=== PATIENT | male | born 1950 | race Caucasian/White ===

== ENCOUNTER → 2017-09-16 10:58 | Outpatient (CLI) | payer MEDICARE, SELFPAY ==
[2017-09-16 14:16] LABS: Basophils % 0.5 % (0.1-2.0); Eosinophils # 0.2 K/mm3 (0.0-0.4); Eosinophils % 2.4 % (0.1-12.0); Hematocrit 39.1 % (42.0-52.0); Hemoglobin 12.8 g/dL (14.1-18.0); Lymphocytes # 1.5 K/mm3 (0.7-4.5); Lymphocytes % 16.3 K/mm3 (10-50); Mean Corpuscular HGB Conc 32.7 g/dL (31.8-35.4); Mean Corpuscular Hemoglobin 30.7 pg (27.0-31.2); Mean Corpuscular Volume 93.6 fl (80-94); Mean Platelet Volume 7.4 fl (7.4-10.4); Monocytes # 0.8 K/mm3 (0.1-1.0); Monocytes % 8.3 % (1.7-9.3); Neutrophils # 6.7 K/mm3 (1.8-7.8); Neutrophils % 72.4 % (37.0-80.0); Platelet Count 297 K/mm3 (142-424); Red Blood Count 4.18 M/mm3 (4.60-6.20); Red Cell Distribution Width 13.7 % (11.5-17.5); White Blood Count 9.2 K/mm3 (4.8-10.8)
[2017-09-16 14:44] LABS: Hemoglobin A1C 6.1 % (0.0-7.0)
[2017-09-16 16:53] LABS: Alanine Aminotransferase 27 U/L (12-78); Albumin Level 3.6 gm/dL (3.4-5.0); Albumin/Globulin Ratio 1.2 (1.1-1.8); Alkaline Phosphatase 97 U/L (46-116); Anion Gap 14.3 mEq/L (5-15); Aspartate Amino Transferase 11 U/L (15-37); Blood Urea Nitrogen 17 mg/dL (7-18); Calcium 8.9 mg/dL (8.5-10.1); Carbon Dioxide 25 mmol/L (21.0-32.0); Chloride 106 mmol/L (98-107); Chol/HDL Ratio 3.1 (1-3.5); Cholesterol 133 mg/dL (140-200); Creatinine,Serum 1.01 mg/dL (0.70-1.30); Estimated Glomerular Filt Rate 73 ml/min (>60); GFR (African American) 89 ML/MIN (>60); Globulin 2.9 gm/dl (1.3-3.2); Glucose 91 mg/dL (74-106); HDL Cholesterol 43 mg/dL (27-67); LDL Cholesterol 73 mg/dL (0-130); Potassium 4.3 mmoL/L (3.5-5.1); Sodium 141 mmol/L (136-145); T4 (Thyroxine) 8.7 ug/dl (4.7-13.3); Thyroid Stimulating Hormone 4.58 uIU/ml (0.358-3.740); Total Protein,Serum 6.5 gm/dL (6.4-8.2); Triglycerides 86 mg/dL (30-200); Triiodothryronine (T3) Uptake 34 % (31-39); VLDL Cholesterol 17 mg/dL (0-40)
== END ==
PROVIDERS: Visit Provider Internal Medicine Adolescent Medicine
DX: E03.2 Hypothyroidism due to medicaments and other exogenous substances (principal); E11.9 Type 2 diabetes mellitus without complications; E78.5 Hyperlipidemia, unspecified; I25.5 Ischemic cardiomyopathy
CPT/HCPCS: 36415; 80053; 80061; 83036; 84436; 84443; 84479; 85025

== ENCOUNTER → 2018-01-31 09:23 | Outpatient (CLI) | payer MEDICARE, SELFPAY ==
--- NOTE | 2018-01-31 09:31 | XR_ITS ---
XR chest 2V HISTORY: ITS.REASON: smoker,soa ORDERING PHYSICIAN: Timothy Casey PATIENT AGE: 67 years Technique: PA and lateral chest COMPARISON: 11/17/2013 two-view CXR. FINDINGS: The lungs are well expanded and clear with nothing definitely acute. Upper normal markings at the medial left base likely reflecting mild chronic changes.No pneumothorax. No pleural effusion. No focal pneumonia. Right lung clear and unremarkable. . heart is normal in size with normal pulmonary vascularity. Lyndsey & mediastinal structures appear satisfactory.. Pacemaker overlying the left chest with atrial and ventricular leads intact. A pacemaker has been revised since 2013 with different orientation of the pacemaker and a additional lead since 2013.. Old right sixth rib fracture again noted. Degenerative changes T-spine again noted. Mild wedging mid T-spine vertebral unchanged since 2013. IMPRESSION Nothing definitely acute. Lungs clear. Perhaps subtle additional atelectasis towards the left lung base. Pacemaker is been revised since 2013. Heart normal size.
[2018-01-31 12:47] LABS: Alanine Aminotransferase 32 U/L (12-78); Albumin Level 3.6 gm/dL (3.4-5.0); Albumin/Globulin Ratio 1.3 (1.1-1.8); Alkaline Phosphatase 103 U/L (46-116); Anion Gap 15.3 mEq/L (5-15); Aspartate Amino Transferase 12 U/L (15-37); Bilirubin,Total 0.6 mg/dL (0.2-1.0); Blood Urea Nitrogen 15 mg/dL (7-18); Calcium 8.5 mg/dL (8.5-10.1); Carbon Dioxide 22 mmol/L (21.0-32.0); Chloride 105 mmol/L (98-107); Creatinine,Serum 0.97 mg/dL (0.70-1.30); Estimated Glomerular Filt Rate 77 ml/min (>60); GFR (African American) 93 ML/MIN (>60); Globulin 2.8 gm/dl (1.3-3.2); Glucose 92 mg/dL (74-106); Potassium 4.3 mmoL/L (3.5-5.1); Sodium 138 mmol/L (136-145); Thyroid Stimulating Hormone 4.36 uIU/ml (0.358-3.740); Total Protein,Serum 6.4 gm/dL (6.4-8.2)
== END ==
PROVIDERS: PCP Internal Medicine Adolescent Medicine; Visit Provider Internal Medicine Clinical Cardiac Electrophysiology
DX: Z79.899 Other long term (current) drug therapy (principal); I48.91 Unspecified atrial fibrillation
CPT/HCPCS: 36415; 71046; 80053; 84443

== ENCOUNTER → 2018-04-23 10:23 | Outpatient (CLI) | payer MEDICARE, SELFPAY ==
--- NOTE | 2018-04-23 10:25 | FL_ITS ---
FL barium swallow INDICATION: dysphagia dysphagia patient reports symptoms at neck/upper chest . TECHNIQUE & FINDINGS: Study FL barium swallow Ordering Physician: Jacinto Hammond MD Patient Age: 67 years: Male HISTORY: ITS.REASON: dysphagia TECHNIQUE: Esophagram/ performed by Dr. Rodgers. Fluoroscopic observation 2 minutes 9 seconds COMPARISON :No relevant prior studies. Previous cyst 2 view chest November 2013 FINDINGS . A pacemaker with multiple leads overlies the chest The cervical esophagus appears satisfactory . Good strength of swallowing. Vallecula & piriform sinuses satisfactory/ reasonably symmetric.. Minimal cricopharyngeus muscle noted but relaxes appropriately, and does not appear to impair the swallowing process. Cervical esophagus remains midline Mid and upper Thoracic esophagus appears satisfactory. However there is relatively narrowed segment at GE junction-raising concern regarding possible stricture or underlying lesion.. There is some minimal distention through this segment, and it does not appear totally fixed but does appears more narrowed than typical thus warrants endoscopy.... Slight delay in the passage of liquid barium through this region also noted. However I do not see the prominent dilatation of the esophagus above this to suggest achalasia.. Recommend endoscopy to further evaluate. IMPRESSION: Narrowing at GE junction,... Suspect for developing stricture, or possible underlying lesion. Recommend endoscopy to further evaluate Otherwise the mid and upper thoracic esophagus, and cervical esophagus appear satisfactory
== END ==
PROVIDERS: PCP Internal Medicine Adolescent Medicine; Visit Provider Surgery
DX: R13.10 Dysphagia, unspecified (principal)
CPT/HCPCS: 74220

== ENCOUNTER 2018-07-24 18:29 | Emergency (ER) | payer MEDICARE, SELFPAY ==
[2018-07-24 18:38] VITALS: BP 106/59; PULSE 81; RESP 17; TEMP 36.8; O2SAT 96; BMI 32.5
[2018-07-24 18:40] VITALS: BP 106/59; PULSE 81; RESP 17; TEMP 36.8; O2SAT 96; BMI 32.5
--- NOTE | 2018-07-24 18:50 | HMH.EDUTC ---
[facility] [place] Impression: Cellulitis of right elbow Disposition: Home, Self-Care Condition on Discharge: Good Instructions: DI for Cellulitis -- Adult Prescriptions: Sulfamethoxazole/Trimethoprim [Bactrim DS tablet] 1 each PO BID 10 Days #20 tab Referrals: Efraín Garcia MD [Primary Care Provider] - Time of Disposition: 19:13 Medical Decision Making - Fito Inquiry Pt receiving controlled substance: No Vital Signs: 07/24/18 18:38 07/24/18 18:40 Temperature 98.3 F 98.3 F Temperature Source Oral Oral Pulse Rate [Left Radial] 81 81 Respiratory Rate 17 17 Blood Pressure [Right Arm] 106/59 L 106/59 L Blood Pressure Mean [Right Arm] 74 74 Blood Pressure Source [Right Arm] Automatic Cuff Automatic Cuff Blood Pressure Position [Right Arm] Sitting Sitting 02 Sat by Pulse Oximetry 96 96 Oxygen Delivery Method Room Air Room Air Orders (Tests/Meds): ED MEDICATIONS Discontinued Medications Generic Name Dose Route Start Last Admin Trade Name Freq PRN Reason Stop Dose Admin Ceftriaxone Sodium 1 gm 07/24/18 18:59 07/24/18 19:01 Rocephin 1gm Vial IM 07/24/18 19:00 1 gm ONCE ONE Administration Protocol Lidocaine HCl 0 ml 07/24/18 18:59 07/24/18 19:01 Lidocaine 1% 10ml Mdv IM 07/24/18 19:00 2.1 ml ONCE ONE Administration ORDERS Category Date Time Status Elbow XR right minimum 3 views [XR elbow RT min 3V] Exams 07/24/18 18:51 Taken Stat - Radiology Data #1 Image(s): Elbow Image Reviewed: Yes I reviewed the patient's radiology image w/the ED provider Preliminary Findings: No Fracture Seen [facility] [place] - General Stated complaint: Cancer, elbow is infected Time Seen by Provider: 07/24/18 18:50 Mode of Arrival: Ambulatory Source of Information: Patient Limitations: No Limitations Description of Symptoms (Recalled from Triage Doc. by RN): c/o right elbow sore that is getting red and think it is infected HEENT Symptoms (Recalled from RN notes): No Resp Symptoms (Recalled from RN notes): No Skin Symptoms (Recalled from RN notes): Yes MS Symptoms (Recalled from RN notes): Yes Functional Status (Recalled from RN notes): WNL - History of Present Illness Provider Complaint: Patient fell 4 days ago and struck his right elbow. His elbow is red and swollen and sore. He has esophageal cancer. Had chemo 2 days ago and radiation today. Onset (ago): day(s) (4) Location: right, upper extremity Relieving factors: immobilization Associated symptoms: denies other symptoms Treatments prior to arrival: none - Related Data Home Medications Medication Instructions Recorded Confirmed amiodarone 200 mg tablet 200 mg PO DAILY 04/20/18 05/07/18 aspirin 81 mg tablet,delayed 81 mg PO DAILY 04/20/18 05/07/18 release atorvastatin 80 mg tablet 80 mg PO DAILY 04/20/18 05/07/18 carvedilol 3.125 mg tablet 3.125 mg PO BID 04/20/18 05/07/18 cholecalciferol (vitamin D3) 1,000 1,000 unit PO DAILY 04/20/18 05/07/18 unit capsule clopidogrel 75 mg tablet 75 mg PO DAILY 04/20/18 05/07/18 coenzyme Q10 10 mg capsule 10 mg PO TID 04/20/18 05/07/18 doxazosin 4 mg tablet 4 mg PO DAILY 04/20/18 05/07/18 furosemide 20 mg tablet 20 mg PO DAILY 04/20/18 05/07/18 losartan 25 mg tablet 25 mg PO DAILY 04/20/18 05/07/18 spironolactone 25 mg tablet 25 mg PO DAILY 04/20/18 05/07/18 Previous Rx's Medication Instructions Recorded fluconazole 100 mg tablet 100 mg PO DAILY #30 tab 07/08/18 sucralfate 1 gram tablet 1 g PO QACHS #120 tab 07/08/18 Sulfamethoxazole/Trimethoprim 1 each PO BID 10 Days #20 tab 07/24/18 [Bactrim DS tablet] Allergies Allergy/AdvReac Type Severity Reaction Status Date / Time No Known Allergies Allergy Verified 05/07/18 06:50 - Worker's Comp Is this a Worker's Comp case?: No [facility] History - Hepatitis A Screen Drug use history?: No High risk sexual behaviors?: No History of sexually transmitted infection?: No Currently employed?: No [employer]
--- NOTE | 2018-07-24 18:51 | XR_ITS ---
XR elbow RT min 3V HISTORY: Pain following injury ITS.REASON: FALL ORDERING PHYSICIAN: AYESHA Tristan PATIENT AGE: 68 years COMPARISON: None FINDINGS: No obvious fracture or dislocation. Prominent enthesophyte is present at the olecranon. There is soft tissue swelling along the proximal aspect of the forearm dorsally. IMPRESSION: No acute fracture Soft tissue swelling
--- NOTE | 2018-07-24 18:54 | ED_ITS ---
[facility] [place] Clinical Impression: Cellulitis of right elbow Disposition: Home, Self-Care Condition on Discharge: Good Instructions: DI for Cellulitis -- Adult Prescriptions: Sulfamethoxazole/Trimethoprim [Bactrim DS tablet] 1 each PO BID 10 Days #20 tab Referrals: Efraín Garcia MD [Primary Care Provider] - Time of Disposition: 19:13 Medical Decision Making - Fito Inquiry Pt receiving controlled substance: No Vital Signs: 07/24/18 18:38 07/24/18 18:40 Temperature 98.3 F 98.3 F Temperature Source Oral Oral Pulse Rate [Left Radial] 81 81 Respiratory Rate 17 17 Blood Pressure [Right Arm] 106/59 L 106/59 L Blood Pressure Mean [Right Arm] 74 74 Blood Pressure Source [Right Arm] Automatic Cuff Automatic Cuff Blood Pressure Position [Right Arm] Sitting Sitting 02 Sat by Pulse Oximetry 96 96 Oxygen Delivery Method Room Air Room Air Orders (Tests/Meds): ED MEDICATIONS Discontinued Medications Generic Name Dose Route Start Last Admin Trade Name Freq PRN Reason Stop Dose Admin Ceftriaxone Sodium 1 gm 07/24/18 18:59 07/24/18 19:01 Rocephin 1gm Vial IM 07/24/18 19:00 1 gm ONCE ONE Administration Protocol Lidocaine HCl 0 ml 07/24/18 18:59 07/24/18 19:01 Lidocaine 1% 10ml Mdv IM 07/24/18 19:00 2.1 ml ONCE ONE Administration ORDERS Category Date Time Status Elbow XR right minimum 3 views [XR elbow RT min 3V] Exams 07/24/18 18:51 Taken Stat - Radiology Data #1 Image(s): Elbow Image Reviewed: Yes I reviewed the patient's radiology image w/the ED provider Preliminary Findings: No Fracture Seen [facility] [place] - General Stated complaint: Cancer, elbow is infected Time Seen by Provider: 07/24/18 18:50 Mode of Arrival: Ambulatory Source of Information: Patient Limitations: No Limitations Description of Symptoms (Recalled from Triage Doc. by RN): c/o right elbow sore that is getting red and think it is infected HEENT Symptoms (Recalled from RN notes): No Resp Symptoms (Recalled from RN notes): No Skin Symptoms (Recalled from RN notes): Yes MS Symptoms (Recalled from RN notes): Yes Functional Status (Recalled from RN notes): WNL - History of Present Illness Provider Complaint: Patient fell 4 days ago and struck his right elbow. His elbow is red and swollen and sore. He has esophageal cancer. Had chemo 2 days ago and radiation today. Onset (ago): day(s) (4) Location: right, upper extremity Relieving factors: immobilization Associated symptoms: denies other symptoms Treatments prior to arrival: none - Related Data Home Medications Medication Instructions Recorded Confirmed amiodarone 200 mg tablet 200 mg PO DAILY 04/20/18 05/07/18 aspirin 81 mg tablet,delayed 81 mg PO DAILY 04/20/18 05/07/18 release atorvastatin 80 mg tablet 80 mg PO DAILY 04/20/18 05/07/18 carvedilol 3.125 mg tablet 3.125 mg PO BID 04/20/18 05/07/18 cholecalciferol (vitamin D3) 1,000 1,000 unit PO DAILY 04/20/18 05/07/18 unit capsule clopidogrel 75 mg tablet 75 mg PO DAILY 04/20/18 05/07/18 coenzyme Q10 10 mg capsule 10 mg PO TID 04/20/18 05/07/18 doxazosin
[2018-07-24 19:23] VITALS: BP 106/59; PULSE 81; RESP 17; TEMP 36.8; O2SAT 96
== END 2018-07-24 19:24 | disposition home or self-care (01) ==
PROVIDERS: Emergency Provider Physician Assistant; PCP Internal Medicine Adolescent Medicine
DX: L03.113 Cellulitis of right upper limb (principal); I10 Essential (primary) hypertension; E78.5 Hyperlipidemia, unspecified; F17.210 Nicotine dependence, cigarettes, uncomplicated; Z95.0 Presence of cardiac pacemaker; C15.9 Malignant neoplasm of esophagus, unspecified
CPT/HCPCS: G0463; 73080; 96372; 99202

== ENCOUNTER → 2019-03-31 07:55 | Outpatient (CLI) | payer MEDICARE, SELFPAY ==
[2019-03-31 15:19] LABS: Anion Gap 15.4 mEq/L (5-15); Blood Urea Nitrogen 17 mg/dL (7-18); Calcium 8.9 mg/dL (8.5-10.1); Carbon Dioxide 26 mmol/L (21.0-32.0); Chloride 108 mmol/L (98-107); Creatinine,Serum 1.15 mg/dL (0.70-1.30); Estimated Glomerular Filt Rate 63 ml/min (>60); GFR (African American) 76 ML/MIN (>60); Glucose 90 mg/dL (74-106); Potassium 5.4 mmoL/L (3.5-5.1); Sodium 144 mmol/L (137-145)
== END ==
PROVIDERS: Visit Provider Internal Medicine Adolescent Medicine
DX: I25.5 Ischemic cardiomyopathy (principal); Z12.5 Encounter for screening for malignant neoplasm of prostate
CPT/HCPCS: 36415; 80048; 83735; G0103

== ENCOUNTER → 2019-04-27 09:09 | Outpatient (CLI) | payer MEDICARE, SELFPAY ==
[2019-04-27 13:56] LABS: Anion Gap 13.5 mEq/L (5-15); Blood Urea Nitrogen 13 mg/dl (9-20); Calcium 9.2 mg/dl (8.4-10.2); Carbon Dioxide 23 mmol/L (22.0-30.0); Chloride 107 mmol/L (98-107); Estimated Glomerular Filt Rate 83 ml/min (>60); GFR (African American) 101 ML/MIN (>60); Glucose 96 mg/dl (74-100); Potassium 4.5 mmoL/L (3.5-5.1); Sodium 139 mmol/L (136-145)
== END ==
PROVIDERS: PCP Internal Medicine Adolescent Medicine; Visit Provider Internal Medicine Cardiovascular Disease
DX: I50.9 Heart failure, unspecified (principal)
CPT/HCPCS: 36415; 80048

== ENCOUNTER → 2019-08-31 10:09 | Outpatient (CLI) | payer MEDICARE, SELFPAY ==
--- NOTE | 2019-08-31 10:25 | XR_ITS ---
PROCEDURE: XR LUMBAR SPINE MIN 4V CLINICAL INDICATION: ACUTE RIGHT SIDED LOW BACK PAIN W/ RIGHT SIDE SCIATICA COMPARISON: No exams were available for comparison FINDINGS: There is DISH of the lower thoracic and upper lumbar spine with mild multilevel degenerative disc disease. No acute fracture or dislocation. Facet arthritic changes are present at L5 and S1. There is mild sclerosis of the SI joints inferiorly on both sides. There is a 3 mm calcific density overlying the mid abdominal region on the left and may be due to a renal stone. May also be a small renal stone along the upper pole of the right kidney. IMPRESSION: 1. Degenerative changes 2. Possible bilateral nephrolithiasis Dictated by: Anthony Nolen MD 08/31/2019 15:29 Electronically signed by Anthony Nolen MD in [place] 08/31/2019 15:29
[2019-08-31 11:05] LABS: Basophils % 0.4 % (0.1-2.0); Eosinophils # 0.1 K/mm3 (0.0-0.4); Eosinophils % 1.9 % (0.1-12.0); Hematocrit 34.2 % (42.0-52.0); Hemoglobin 11.7 g/dL (14.1-18.0); Lymphocytes # 0.8 K/mm3 (0.7-4.5); Lymphocytes % 12.1 % (10-50); Mean Corpuscular HGB Conc 34.2 g/dL (31.8-35.4); Mean Corpuscular Hemoglobin 34.3 pg (27.0-31.2); Mean Platelet Volume 7.5 fl (7.4-10.4); Monocytes # 0.6 K/mm3 (0.1-1.0); Monocytes % 9.4 % (1.7-9.3); Neutrophils # 5.1 K/mm3 (1.8-7.8); Neutrophils % 76.2 % (37.0-80.0); Platelet Count 241 K/mm3 (142-424); Red Blood Count 3.42 M/mm3 (4.60-6.20); Red Cell Distribution Width 16.7 % (11.5-17.5); White Blood Count 6.8 K/mm3 (4.8-10.8)
[2019-08-31 12:19] LABS: Chloride 106 mmol/L (98-107); Potassium 4.5 mmoL/L (3.5-5.1); Sodium 138 mmol/L (136-145)
[2019-08-31 12:21] LABS: Blood Urea Nitrogen 32 mg/dl (9-20); Estimated Glomerular Filt Rate 60 ml/min (>60); GFR (African American) 72 ML/MIN (>60)
[2019-08-31 12:22] LABS: Alanine Aminotransferase 22 U/L (12-78); Albumin Level 3.7 g/dl (3.5-5.0); Albumin/Globulin Ratio 1.6 (1.1-1.8); Alkaline Phosphatase 96 U/L (38-126); Anion Gap 13.5 mEq/L (5-15); Aspartate Amino Transferase 23 U/L (17-59); Bilirubin,Total 1.2 mg/dl (0.2-1.3); Calcium 8.8 mg/dl (8.4-10.2); Carbon Dioxide 23 mmol/L (22.0-30.0); Chol/HDL Ratio 2.5 (1-3.5); Cholesterol 128 mg/dl (140-200); Globulin 2.3 g/dL (1.3-3.2); Glucose 91 mg/dl (74-100); HDL Cholesterol 51 mg/dl (40-60); Triglycerides 80 mg/dl (30-150); VLDL Cholesterol 16 mg/dL (0-40)
[2019-08-31 12:34] LABS: Direct LDL Cholesterol 67.08 mg/dL (100-129)
[2019-08-31 13:06] LABS: Hemoglobin A1C 5.4 % (4.0-6.0)
== END ==
PROVIDERS: Visit Provider Internal Medicine Adolescent Medicine
DX: E78.5 Hyperlipidemia, unspecified (principal); E11.9 Type 2 diabetes mellitus without complications; M54.41 Lumbago with sciatica, right side
CPT/HCPCS: 36415; 72110; 80053; 80061; 83036; 85025

== ENCOUNTER 2019-10-07 08:00 | Outpatient (RCR) | payer MEDICARE, SELFPAY ==
--- NOTE | 2019-09-22 12:02 | HMH.PTOPEV ---
PT Outpatient Evaluation Rehab PT Outpatient Evaluation Start: 09/22/19 11:28 Freq: Status: Active Protocol: Document 09/22/19 11:28 PDESEROUX (Rec: 09/22/19 12:02 PDESEROUX [id number]) Electronically Signed By Jaxson Green, PT 09/22/19 11:28 Outpatient Therapy Subjective History Subjective History Pt. is a 69 year old male who presents to outpatient PT clinic w/ complaints(initial encounter) of constant and subacute RLE( buttock,posterolateral thigh to knee) of insidious onset 2 months ago that has gotten worse. Pt. denies symptoms in LLE, and denies bowel/bladder dysfunction. Recent diagnostic imaging negative per pt. report. Pt. denies having injections for current pathology. Pt. unable to recall prescription medications at this time, stated left my wallet at home . PMH includes Hypotension, prostate/esophageal cancer, PACEMAKER, RLE TKA, and Cardiac stent placement. Chief Complaint Pain Symptom Type Sharp,Stabbing Symptoms Relieved By Nothing Symptoms Aggravated By Sitting,Standing,Walking Prior Functional Limitations None Current Functional Limitations Standing,Sitting,Walking, Bending/Stooping Symptom Description Constant but Variable Level of pain today (0-10) 5 Pain scale - at its best (0-10) 2 Pain scale - at its worst (0-10) 10 Lumbopelvic Eval Posture Thoracic Spine Posture Standing Position Neutral Lumbar Spine Posture Standing Position Flattened Assistive device Assistive Devices None / NA,Straight Cane Gait Observation General Gait Pattern Observation Antalgic Gait,Decrease Weight Bear (L),Decrease Stride Lngth (R) Palapation tenderness right thoracic spinal tenderness No lumbar spinal tenderness No paraspinal tenderness No buttock tenderness Yes: grade 3 +TTP to piriformis mm. belly Lumbar/Sacral Palpation Findings Tenderness Range of Motion Lumbar Spine Active Flexion Range of 65 Motion (degrees) Lumbar Spine Active Extension Range of 15 Motion (degrees) Left Lumbar
== END 2019-10-28 12:49 | disposition home or self-care (01) ==
LOC: PT.CARL 08:00
PROVIDERS: PCP Internal Medicine Adolescent Medicine; Visit Provider Internal Medicine Adolescent Medicine
DX: M54.41 Lumbago with sciatica, right side (principal)
CPT/HCPCS: 97012; 97110; 97140; 97163

== ENCOUNTER → 2020-03-17 11:55 | Outpatient (CLI) | payer MEDICARE, SELFPAY ==
--- NOTE | 2020-03-17 12:02 | XR_ITS ---
PROCEDURE: XR CHEST 2V CLINICAL HISTORY: SOA,COUGH Anterior chest pain COMPARISON: CR CXR CHEST(2 VIEWS-NOT PORTABLE) from 11/17/2013 CR CXR2V XR chest 2V from 01/31/2018 FINDINGS: Biventricular right atrial pacemaker leads are present from the left subclavian approach. Normal heart size. Cardiac stents are present. The lungs are clear without infiltrates, suspicious nodules, or pleural effusions. There are degenerative changes in the thoracic spine. There is an old right 6th rib fracture. IMPRESSION: No change with no acute finding Dictated by: Anthony Nolen MD 03/17/2020 12:21 Anthony Nolen MD in [place] 03/17/2020 12:21
[2020-03-17 13:47] LABS: Basophils % 0.4 % (0.1-2.0); Eosinophils # 0.1 K/mm3 (0.0-0.4); Eosinophils % 1.9 % (0.1-12.0); Hematocrit 40.4 % (42.0-52.0); Hemoglobin 13.4 g/dL (14.1-18.0); Lymphocytes # 0.7 K/mm3 (0.7-4.5); Lymphocytes % 13.3 % (10-50); Mean Corpuscular HGB Conc 33.1 g/dL (31.8-35.4); Mean Corpuscular Hemoglobin 32.3 pg (27.0-31.2); Mean Corpuscular Volume 97.6 fl (80-94); Mean Platelet Volume 7.7 fl (7.4-10.4); Monocytes # 0.6 K/mm3 (0.1-1.0); Monocytes % 11.3 % (1.7-9.3); Neutrophils # 4.1 K/mm3 (1.8-7.8); Neutrophils % 73.2 % (37.0-80.0); Platelet Count 321 K/mm3 (142-424); Red Blood Count 4.13 M/mm3 (4.60-6.20); White Blood Count 5.6 K/mm3 (4.8-10.8)
[2020-03-17 14:11] LABS: Alanine Aminotransferase 21 U/L (12-78); Albumin Level 4.2 g/dl (3.5-5.0); Albumin/Globulin Ratio 1.6 (1.1-1.8); Alkaline Phosphatase 155 U/L (38-126); Anion Gap 14.7 mEq/L (5-15); Aspartate Amino Transferase 24 U/L (17-59); Blood Urea Nitrogen 25 mg/dl (9-20); Calcium 9.5 mg/dl (8.4-10.2); Carbon Dioxide 26 mmol/L (22.0-30.0); Chloride 105 mmol/L (98-107); Estimated Glomerular Filt Rate 66 ml/min (>60); GFR (African American) 80 ML/MIN (>60); Globulin 2.6 g/dL (1.3-3.2); Glucose 103 mg/dl (74-100); Potassium 4.7 mmoL/L (3.5-5.1); Sodium 141 mmol/L (136-145); Total Protein,Serum 6.8 g/dl (6.3-8.2)
[2020-03-17 14:19] LABS: NT Pro Brain Natriuretic Pep. 781 pg/mL (0-125)
== END ==
PROVIDERS: PCP Internal Medicine Adolescent Medicine; Visit Provider Nurse Practitioner Family
DX: R06.02 Shortness of breath (principal); R05 Cough
CPT/HCPCS: 36415; 71046; 80053; 83880; 85025

== ENCOUNTER 2020-03-19 09:11 | Emergency (ER) | payer MEDICARE, SELFPAY ==
[2020-03-19 09:13] VITALS: BP 139/84; PULSE 82; RESP 16; TEMP 37.1; O2SAT 98; BMI 41.5
--- NOTE | 2020-03-19 09:21 | HMH.EDGENADL ---
ED Disposition Clinical Impression: Herpes zoster Qualifiers: Herpes zoster complications: without complications Qualified Code(s): B02.9 - Zoster without complications Disposition: Home, Self-Care Condition on Discharge: Good Instructions: DI for Shingles Additional Instructions: Take acyclovir as prescribed. Pleasant Unity as needed for pain. Follow-up with your primary care provider this week. Additional instructions for CONTROLLED SUBSTANCES: You have been prescribed a medication that is a controlled substance. Controlled substances include pain medications known as opiates and sedative nerve medications known as benzodiazepines. Tramadol, fioricet, and gabapentin are also controlled substances. Some common opiates include: Codeine (such as Tylenol #3) Hydrocodone (Vicodin, Lortab, Lorcet, Ple[place] Unity) Oxycodone (Percocet, Percodan, Oxycodone, Oxy IR) Some common benzodiazepines include: Diazepam (Valium) Lorazepam (Ativan) Alprazolam (Xanax) Clonazepam (Klonopin) Oxazepam (Serax) All of these controlled substances are highly addictive and frequently abused. Misuse can and frequently does lead to addiction as well as overdose and . Medication should be stored in a locked cabinet or other secure storage unit. Do not store the medication in a motor vehicle. Short term supplies, 3 days or less, are prescribed because of the highly addictive nature of the medication. Any of the controlled substance medication NOT taken should be disposed of properly and NOT SAVED. The recommended method of disposing of unused medications is: Place the medicines in a sealable plastic bag. If the medicine is a solid, crush it or add water to dissolve it. Add something undesirable (cat litter, coffee grounds, etc.) Dispose of sealed bag in household trash Do not flush or pour unused medicines down a sink or drain. Controlled substances should not be shared, given away or sold. Because of the addictive nature and frequent abuse, these medications are sometimes stolen. These medications should be kept in a safe place where they cannot be stolen. Do not keep them in your car or purse. Lost or stolen prescriptions for controlled substances WILL NOT BE REFILLED in this emergency department, regardless of whether a police report was filed. Prescriptions: Hydrocod/Acet 5/325 mg [Ple[place] 5/325mg tablet] 1 tab PO Q6HP PRN #20 tab PRN Reason: Pain Transmission Status: Received by [id number] Acyclovir [Acyclovir 800mg tab] 800 mg PO 5XDAY #35 tab Transmission Status: Received by [id number] Referrals: Efraín Garcia MD [Primary Care Provider] - - Critical Care Critical Care Time: No Attestation: On , the high probability of a clinically significant, sudden or life threatening deterioration of the following system(s) required my full and direct attention, intervention and personal management. The time I documented below is in addition to time spent performing reported procedures but includes the following listed in this critical care notation. Medical Decision Making - Fito Inquiry Pt receiving controlled substance: Yes Fito was queried for this patient: Yes Reference #:: [id number] Risks and benefits of using a controlled substance: were discussed with pt by me Comment: 1 rx for tyl#3 02/17/20 Vital Signs: 03/19/20 09:13 03/19/20 09:41 Temperature 98.8 F Temperature Source Oral Pulse Rate [Radial] 82 74 Respiratory Rate 16 18 Blood Pressure [Right Arm] 139/84 147/84 H Blood Pressure Mean [Right Arm] 102 105 Blood Pressure Position [Right Arm] Sitting 02 Sat by Pulse Oximetry 98 92 L Oxygen Delivery Method Room Air Room Air Medical Decision Narrative: The patient has typical rash of herpes zoster and I feel his pain is neuropathic from this condition. He did have a shingles vaccination but it has been 5 or more years. General Adult HPI - General Stated complaint: body sw
[2020-03-19 09:41] VITALS: BP 147/84; PULSE 74; RESP 18; O2SAT 92
[2020-03-19 10:15] VITALS: BP 136/74; PULSE 78; RESP 20; TEMP 36.6; O2SAT 96
== END 2020-03-19 10:16 | disposition home or self-care (01) ==
PROVIDERS: Emergency Provider Emergency Medicine; PCP Internal Medicine Adolescent Medicine
DX: B02.9 Zoster without complications (principal); J44.9 Chronic obstructive pulmonary disease, unspecified; E78.5 Hyperlipidemia, unspecified; I10 Essential (primary) hypertension; Z95.0 Presence of cardiac pacemaker; F17.210 Nicotine dependence, cigarettes, uncomplicated; Z79.899 Other long term (current) drug therapy
CPT/HCPCS: 99282

== ENCOUNTER 2020-05-12 11:16 | Emergency (ER) | payer MEDICARE, SELFPAY ==
[2020-05-12 11:20] VITALS: PULSE 55; RESP 22; TEMP 36.6; O2SAT 92; BMI 42.8
--- NOTE | 2020-05-12 11:21 | XR_ITS ---
PROCEDURE: XR RIBS RT MIN 3V W CXR1V CLINICAL INDICATION: fall with pain COMPARISON: CR CXR CHEST(2 VIEWS-NOT PORTABLE) from 11/17/2013 CR CXR2V XR chest 2V from 01/31/2018 CR XR CHEST 2V from 03/17/2020 FINDINGS: There is an old healed fracture of the posterior aspect the right 6th rib, however there is appear acute fracture of the right 6th rib posterior axillary line with 2-3 mm displacement. There is no pneumothorax. The lower 3 ribs are not well visualized on any of these images evaluated. Both lung vinson are clear. The left-sided cardiac pacemaker is again noted with 3 electrodes all in good position. IMPRESSION: Apparent acute minimally displaced fracture right 6th rib just lateral to the previously healed fracture Dictated by: Dr. Israel Monae MD 05/12/2020 13:45 Dr. Israel Monae MD in [place] 05/12/2020 13:45
[2020-05-12 11:39] VITALS: BP 95/46; PULSE 61; O2SAT 92
--- NOTE | 2020-05-12 11:53 | HMH.EDGENADL ---
ED Disposition Clinical Impression: Rib fracture Qualifiers: Encounter type: initial encounter Rib fracture type: single rib Fracture type: closed Laterality: right Qualified Code(s): S22.31XA - Fracture of one rib, right side, initial encounter for closed fracture Disposition: Home, Self-Care Condition on Discharge: Good Instructions: DI for Rib Fracture Additional Instructions: Use incentive spirometer 10 times per hour while awake. Follow-up with your primary care doctor early next week for reevaluation. Return to the emergency department if you develop any acute shortness of breath, fever, other acute new concerns. Referrals: Edwin Gonzalez MD [Primary Care Provider] - 3 days - Critical Care Critical Care Time: No Attestation: On 05/12/20, the high probability of a clinically significant, sudden or life threatening deterioration of the following system(s) required my full and direct attention, intervention and personal management. The time I documented below is in addition to time spent performing reported procedures but includes the following listed in this critical care notation. Medical Decision Making - Medical Records Medical records reviewed: Yes: I reviewed the patient's medical records. - Fito Inquiry Pt receiving controlled substance: No Vital Signs: 05/12/20 11:20 05/12/20 11:39 Temperature 98 F Temperature Source Oral Pulse Rate [Radial] 55 L 61 Respiratory Rate 22 Blood Pressure [Right Arm] 95/46 L Blood Pressure Mean [Right Arm] 62 Blood Pressure Position [Right Arm] Sitting 02 Sat by Pulse Oximetry 92 L 92 L Oxygen Delivery Method Room Air Orders (Tests/Meds): ED MEDICATIONS Discontinued Medications Generic Name Dose Route Start Last Admin Trade Name Freq PRN Reason Stop Dose Admin Sodium Chloride 1,000 mls @ 999 mls/hr 05/12/20 11:45 05/12/20 11:57 Sod Chlor 0.9% 1000ml Bag IV 05/12/20 12:45 Not Given .Q1H1M TRACY ORDERS Category Date Time Status EKG Request [ECG Request by /Edi] Stat Y 05/12/20 11:20 Stop Req - Radiology Data #1 Image(s): Chest Image Reviewed: Yes I reviewed the patient's radiology results FINDINGS: There is an old healed fracture of the posterior aspect the right 6th rib, however there is appear acute fracture of the right 6th rib posterior axillary line with 2-3 mm displacement. There is no pneumothorax. The lower 3 ribs are not well visualized on any of these images evaluated. Both lung vinson are clear. The left-sided cardiac pacemaker is again noted with 3 electrodes all in good position. IMPRESSION: Apparent acute minimally displaced fracture right 6th rib just lateral to the previously healed fracture Medical Decision Narrative: Patient has had a blood pressure of 95-102 systolic which is within his normal range here. His rib series does show that he has an acute right rib fracture. Cannot treat with narcotics as his blood pressure always stays on the lower end. Recommended ibuprofen/Tylenol, will give incentive spirometer. I discussed this finding with his primary care provider and encouraged patient to follow-up early next week for reevaluation. General Adult HPI - General Chief complaint: PAIN Stated complaint: labs, ct scan, Time Seen by Provider: 05/12/20 11:53 Mode of Arrival: Ambulatory Limitations: No Limitations Description of Symptoms (Recalled from ER Triage Doc. by RN): to ed per pvt car with c/o rt side rib pain x 1 week pt states he was turning over in bedside an heard a crack. c/o sob with exertion. - History of Present Illness HPI narrative: This is a 69-year-old female with a past medical history significant for congestive heart failure, COPD, hypertension, hyperlipidemia, pacemaker who presents to the emergency department for evaluation of right-sided rib pain that started about 1 week ago when he rolled over in bed and heard a crack . He had a fall in December with
[2020-05-12 14:35] VITALS: BP 96/61; PULSE 60; RESP 20; TEMP 36.7; O2SAT 94
== END 2020-05-12 14:37 | disposition home or self-care (01) ==
PROVIDERS: Emergency Provider Emergency Medicine; PCP Internal Medicine Adolescent Medicine
DX: S22.31XA Fracture of one rib, right side, initial encounter for closed fracture (principal); J44.9 Chronic obstructive pulmonary disease, unspecified; I50.9 Heart failure, unspecified; I10 Essential (primary) hypertension; E78.5 Hyperlipidemia, unspecified; F17.210 Nicotine dependence, cigarettes, uncomplicated; Z95.0 Presence of cardiac pacemaker; Z79.899 Other long term (current) drug therapy
CPT/HCPCS: 71101; 99282

== ENCOUNTER → 2020-05-19 13:38 | Outpatient (POV) | payer MEDICARE, SELFPAY ==
[2020-05-19 13:55] VITALS: BP 113/53; PULSE 69; RESP 18; TEMP 36.6; O2SAT 98; BMI 41.5
--- NOTE | 2020-05-19 14:09 | HMH.PMCON ---
Assessment and Plan (1) Postherpetic polyneuropathy Status: Acute Category: Medical Code(s): B02.23 - Postherpetic polyneuropathy (2) Postherpetic neuralgia Status: Acute Category: Medical Code(s): B02.29 - Other postherpetic nervous system involvement - Assessment and plan all Dx Assessment and Plan for all problems:: We will start him on Lyrica 75 mg twice a day since he is unable to take gabapentin. We will follow-up with him in 2 weeks. Will reevaluate his symptoms. Since he is not having any acute pain today I do not believe he is a candidate for sympathetic block at this time. HPI - Data of Consult Patient: new to practice Consult date: 05/19/20 Requesting Physician: Neno Hernandez MD Primary Care Provider: Efraín Garcia MD - Consult Narrative Reason for consult: Postherpetic neuralgia and postherpetic polyneuropathy left arm History of present illness: Mr. Emery is a 69 year old male who developed shingles and is neck and left arm in February. He did present to the ER with some increasing pain. He has now developed postherpetic neuralgia and postherpetic polyneuropathy down his left arm. He was unable to take gabapentin because of severe side effects including diarrhea. Today he is not having any pain however he does have some occasional numbness and tingling in his left hand. CC: Neno Hernandez MD [facility] History I have reviewed the patient's past medical history: Yes Medical History: Reports:: Chronic Obstructive Pulmonary Disease (COPD), Coronary Artery Disease, Hyperlipidemia, Hypertension, Internal Pacemaker, Lung Disease (jadyn cpap) Denies:: Cancer, Diabetes Mellitus Type 1, Diabetes Mellitus Type 2, MRSA, Seizures *Have you ever received a pneumonia vaccine?: Yes *Have you received a flu vaccine this season?: Yes Laterality Cases: Right: Arthroscopy Knee Other Surgeries: Yes: Colonoscopy, EGD, Pacemaker, Other Amputation: No - *Social History Smoking Status: Current every day smoker Alcohol Intake: never Substance Use Type: denies use *Occupational Status:: retired Housing: house Household Members: spouse *Travel in the last 8 weeks: None Family Hx:: Hyperlipidemia, Hypertension, Heart Attack Meds Home Medications Medication Instructions Recorded Confirmed Type amiodarone 200 mg tablet 200 mg PO DAILY 04/20/18 05/19/20 History aspirin 81 mg tablet,delayed 81 mg PO DAILY 04/20/18 05/19/20 History release atorvastatin 80 mg tablet 80 mg PO DAILY 04/20/18 05/19/20 History carvedilol 3.125 mg tablet 3.125 mg PO BID 04/20/18 05/19/20 History cholecalciferol (vitamin D3) 25 1,000 unit PO DAILY 04/20/18 05/19/20 History mcg (1,000 unit) capsule clopidogrel 75 mg tablet 75 mg PO DAILY 04/20/18 05/19/20 History coenzyme Q10 10 mg capsule 10 mg PO TID 04/20/18 05/19/20 History furosemide 20 mg tablet 20 mg PO DAILY 04/20/18 05/19/20 History losartan 25 mg tablet 25 mg PO DAILY 04/20/18 05/19/20 History spironolactone 25 mg tablet 25 mg PO DAILY 04/20/18 05/19/20 History Sucralfate [Sucralfate 1gm 1 g PO QAS 03/19/20 05/19/20 History Tab] Allergies Allergy/AdvReac Type Severity Reaction Status Date / Time No Known Allergies Allergy Verified 05/19/20 13:56 Objective Vital signs: Temp Pulse Resp BP Pulse Ox 97.9 F 69 18 113/53 L 98 05/19/20 13:55 05/19/20 13:55 05/19/20 13:55 05/19/20 13:55 05/19/20 13:55
== END ==
PROVIDERS: PCP Internal Medicine Adolescent Medicine; Visit Provider Anesthesiology
DX: B02.23 Postherpetic polyneuropathy (principal); B02.29 Other postherpetic nervous system involvement
CPT/HCPCS: 99202; G0463

== ENCOUNTER 2020-05-25 12:43 | Outpatient (CLI) | payer MEDICARE, SELFPAY ==
[2020-05-25 12:47] LABS: Microscopic, Urine URINE MICROSCOPIC (MICROSCOPIC)
[2020-05-25 13:28] LABS: Appearance,Urine CLEAR (Clear); Basophils % 0.3 % (0.1-2.0); Bilirubin,Urine Negative (Negative); Blood, Urine TRACE-I (Negative); Color,Urine YELLOW (Yellow); Eosinophils # 0.1 K/mm3 (0.0-0.4); Eosinophils % 0.9 % (0.1-12.0); Glucose,Urine (UA) Negative (Negative); Hematocrit 33.4 % (42.0-52.0); Hemoglobin 11.5 g/dL (14.1-18.0); Ketones,Urine Negative (Negative); Leukocyte Esterase,Urine Negative (Negative); Lymphocytes % 10.2 % (10-50); Mean Corpuscular HGB Conc 34.3 g/dL (31.8-35.4); Mean Corpuscular Hemoglobin 32.6 pg (27.0-31.2); Mean Platelet Volume 7.3 fl (7.4-10.4); Monocytes % 9.5 % (1.7-9.3); Neutrophils % 79.2 % (37.0-80.0); Nitrate,Urine Negative (Negative); Platelet Count 340 K/mm3 (142-424); Protein,Urine Negative (Negative); Red Blood Count 3.51 M/mm3 (4.60-6.20); Specific Gravity, Urine 1.015 (1.005-1.030); Urobilinogen,Urine 0.2 EU/dl (0.2); White Blood Count 10.1 K/mm3 (4.8-10.8)
[2020-05-25 13:37] VITALS: BP 143/76; PULSE 65; RESP 20; TEMP 36.3; O2SAT 96
[2020-05-25 14:15] LABS: Alanine Aminotransferase 30 U/L (12-78); Albumin Level 3.9 g/dl (3.5-5.0); Albumin/Globulin Ratio 1.3 (1.1-1.8); Alkaline Phosphatase 196 U/L (38-126); Anion Gap 18.5 mEq/L (5-15); Aspartate Amino Transferase 31 U/L (17-59); Bilirubin,Total 0.9 mg/dl (0.2-1.3); Blood Urea Nitrogen 35 mg/dl (9-20); Carbon Dioxide 18 mmol/L (22.0-30.0); Chloride 109 mmol/L (98-107); Estimated Glomerular Filt Rate 28 ml/min (>60); GFR (African American) 34 ML/MIN (>60); Globulin 2.9 g/dL (1.3-3.2); Glucose 104 mg/dl (74-100); Magnesium 2.1 mg/dl (1.6-2.3); Potassium 4.5 mmoL/L (3.5-5.1); Sodium 141 mmol/L (136-145); Total Protein,Serum 6.8 g/dl (6.3-8.2)
[2020-05-25 14:40] VITALS: BP 136/74; PULSE 62; RESP 18; O2SAT 97
[2020-05-25 15:28] VITALS: BP 124/69; PULSE 59; RESP 16; TEMP 36.4; O2SAT 97
== END 2020-05-25 15:30 | disposition home or self-care (01) ==
LOC: LAB 12:44 → INF 13:15
PROVIDERS: PCP Internal Medicine Adolescent Medicine; Visit Provider Internal Medicine Adolescent Medicine
DX: E86.0 Dehydration (principal)
CPT/HCPCS: 36415; 80053; 81001; 83735; 85025; 96360

== ENCOUNTER → 2020-05-26 09:53 | Outpatient (CLI) | payer MEDICARE, SELFPAY ==
[2020-05-26 10:56] LABS: Chloride 112 mmol/L (98-107); Sodium 140 mmol/L (136-145)
[2020-05-26 10:57] LABS: Potassium 4.3 mmoL/L (3.5-5.1)
[2020-05-26 11:00] LABS: Anion Gap 13.3 mEq/L (5-15); Blood Urea Nitrogen 31 mg/dl (9-20); Calcium 8.6 mg/dl (8.4-10.2); Carbon Dioxide 19 mmol/L (22.0-30.0); Estimated Glomerular Filt Rate 31 ml/min (>60); GFR (African American) 38 ML/MIN (>60); Glucose 125 mg/dl (74-100)
== END ==
PROVIDERS: Visit Provider Internal Medicine Adolescent Medicine
DX: E86.0 Dehydration (principal)
CPT/HCPCS: 36415; 80048

== ENCOUNTER 2020-06-11 20:40 | Emergency (ER) | payer MEDICARE, SELFPAY ==
[2020-06-11 20:36] VITALS: BP 70/48; PULSE 60; RESP 18; TEMP 36.4; O2SAT 97; BMI 40.8
--- NOTE | 2020-06-11 20:46 | CT_ITS ---
PROCEDURE: CT HEAD/BRAIN WO CON CLINICAL INDICATION: fall Pain lethargic weak Upper quad abd pain COMPARISON: CT [facility] CTA-HEAD from 11/18/2013 TECHNIQUE: Axial images obtained. All CT scans at the facility use one or more dose reduction, viz: automated exposure control, ma/kV adjustment per patient size (including targeted exams where dose is matched to indication, i.e. head), or iterative reconstruction technique. FINDINGS: No midline shift, mass effect, intracranial hemorrhage, hydrocephalus, or extra-axial fluid collection is evident. There is a 1.5 cm soft tissue mass within the posterior aspect of sphenoid sinus clivus region. This is described further in the CT scan of the neck. IMPRESSION: No acute intracranial findings. Soft tissue mass in the posterior sphenoid sinus/clivus region. Please see CT of the cervical spine report for further description. Suggest in ENT the consultation as well as CT of the neck without and with contrast for further evaluation. Dictated by: Anthony Nolen MD 06/13/2020 06:52 Anthony Nolen MD in [facility] 06/13/2020 06:52
--- NOTE | 2020-06-11 20:46 | XR_ITS ---
PROCEDURE: XR PELVIS 1-2V CLINICAL INDICATION: fall Posttraumatic pain COMPARISON: CT CT ABDOMEN PELVIS WO CON from 06/11/2020 TECHNIQUE: XR Pelvis AP View FINDINGS: No fracture or dislocation is evident. Osteoarthritic changes of the hips and SI joints. Prostate seed implants noted. No lytic or blastic change. IMPRESSION: No acute findings. Dictated by: Anthony Nolen MD 06/12/2020 06:08 Anthony Nolen MD in [facility] 06/12/2020 06:08
--- NOTE | 2020-06-11 20:46 | ECG_ITS ---
APPROVED REPORT Exam: Resting ECG HR:60 bpm ECG Measurements Heart Rate 60 AXES QRSd 184 QRS 257 QT 542 T 67 QTc 542 Conclusion Electronic atrial pacemaker Abnormal ECG Electronically signed by : Efraín Garcia, 06/12/2020 18:05:04
--- NOTE | 2020-06-11 20:46 | XR_ITS ---
PROCEDURE: XR CHEST PORTABLE CLINICAL HISTORY: fall COMPARISON: CR CXR2V XR chest 2V from 01/31/2018 CR XR CHEST 2V from 03/17/2020 CR XR RIBS RT MIN 3V W CXR1V from 05/12/[address] ABDOMEN PELVIS WO CON from 06/11/2020 FINDINGS: Mild cardiomegaly without failure. Study is under penetrated. Tripolar cardiac pacemaker device present from left subclavian approach. The lungs are clear without infiltrates, suspicious nodules, or pleural effusions. There is an old right 6th rib fracture. IMPRESSION: No acute findings. Dictated by: Anthony Nolen MD 06/12/2020 06:06 Anthony Nolen MD in [facility] 06/12/2020 06:06
--- NOTE | 2020-06-11 20:46 | CT_ITS ---
PROCEDURE: CT CERVICAL SPINE WO CON CLINICAL INDICATION: fall Neck injury with pain, contusion/abrasion or hematoma, cervical sprain/strain the COMPARISON: CT HDWO CT HEAD W/O CONTRAST from 11/17/2013 CT [facility] CTA-HEAD from 11/18/2013 TECHNIQUE: Axial images obtained with sagittal and coronal reformats. All CT scans at the facility use one or more dose reduction, viz: automated exposure control, ma/kV adjustment per patient size (including targeted exams where dose is matched to indication, i.e. head), or iterative reconstruction technique. Axial spiral CT scanning performed of the cervical spine beginning at the base of the skull and continuing to the upper T-spine. 3-D multiplanar reconstruction with 3-D manipulation of volumetric data set in image rendering was completed by the radiologist and/or technologist with the supervision of the radiologist on independent workstation. FINDINGS: There is normal alignment. No acute fracture or dislocation is evident. Mild degenerative disc disease C3-C4 with minimal bulging disc/small central disc protrusion. Small anterior osteophytes are present within the cervical spine. Lung apices are clear. There is mild thickening of the upper thoracic esophagus nonspecific. Incidental note is made soft tissue mass within the posterior and inferior aspect of the sphenoid sinus which measures 1.9 x 1.6 by 1.5 cm. This is causing erosion the floor the sphenoid sinus and of the cephalad portion of the clivus. IMPRESSION: 1. No acute fracture. 2. Soft tissue mass of the sphenoid sinus with erosion of the floor of the sphenoid sinus and the superior aspect of the clivus. Differential diagnosis would include sphenoid sinus mucocele, neoplasm of the sphenoid sinus or clivus, chordoma of the clivus, or metastatic lesion. ENT consultation suggested. CT of the sinuses/neck without and with contrast recommended for further evaluation. Dictated by: Anthony Nolen MD 06/12/2020 09:01 Anthony Nolen MD in [facility] 06/12/2020 09:01
[2020-06-11 20:57] LABS: Adenovirus,PCR Not Detected (NotDetected); Bordetella Pertussis Not Detected (NotDetected); Chlamydophila Pneumoniae, PCR Not Detected (NotDetected); Coronavirus 19, PCR Not Detected (NotDetected); Coronavirus 229E Not Detected (NotDetected); Coronavirus NL63 Not Detected (NotDetected); Coronavirus OC43 Not Detected (NotDetected); Coronovirus HKU1,PCR Not Detected (NotDetected); Human Metapneumovirus Not Detected (NotDetected); Influenza A, PCR Not Detected (NotDetected); Influenza AH1, 2009 Not Detected (NotDetected); Influenza AH1, PCR Not Detected (NotDetected); Influenza AH3,PCR Not Detected (NotDetected); Influenza B, PCR Not Detected (NotDetected); Mycoplasma Pneumoniae, PCR Not Detected (NotDetected); Parainfluenza 1, PCR Not Detected (NotDetected); Parainfluenza 2, PCR Not Detected (NotDetected); Parainfluenza 3, PCR Not Detected (NotDetected); Parainfluenza 4, PCR Not Detected (NotDetected); Respiratory Syncytial Virus Not Detected (NotDetected); Rhinovirus/Enterovirus Not Detected (NotDetected)
[2020-06-11 21:00] VITALS: BP 69/33; PULSE 60; RESP 24; O2SAT 95
[2020-06-11 21:00] LABS: Basophils % 0.2 % (0.1-2.0); Eosinophils % 0.5 % (0.1-12.0); Hematocrit 27.6 % (42.0-52.0); Lymphocytes # 0.6 K/mm3 (0.7-4.5); Lymphocytes % 6.8 % (10-50); Mean Corpuscular HGB Conc 32.3 g/dL (31.8-35.4); Mean Corpuscular Hemoglobin 32.1 pg (27.0-31.2); Mean Corpuscular Volume 99.6 fl (80-94); Mean Platelet Volume 7.9 fl (7.4-10.4); Monocytes # 0.9 K/mm3 (0.1-1.0); Monocytes % 10.2 % (1.7-9.3); Neutrophils # 6.9 K/mm3 (1.8-7.8); Neutrophils % 82.4 % (37.0-80.0); Platelet Count 237 K/mm3 (142-424); Red Blood Count 2.78 M/mm3 (4.60-6.20); Red Cell Distribution Width 17.6 % (11.5-17.5); White Blood Count 8.3 K/mm3 (4.8-10.8)
[2020-06-11 21:01] LABS: Hemoglobin 8.9 g/dL (14.1-18.0)
[2020-06-11 21:09] LABS: Microscopic, Urine URINE MICROSCOPIC (MICROSCOPIC)
[2020-06-11 21:14] LABS: Appearance,Urine CLOUDY (Clear); Blood, Urine TRACE-I (Negative); Color,Urine YELLOW (Yellow); Glucose,Urine (UA) Negative (Negative); Ketones,Urine Negative (Negative); Leukocyte Esterase,Urine 3+ (Negative); Nitrate,Urine Negative (Negative); Protein,Urine 1+ (Negative); Urobilinogen,Urine 0.2 EU/dl (0.2)
[2020-06-11 21:17] LABS: Bilirubin,Urine Negative (Negative)
[2020-06-11 21:20] LABS: Alanine Aminotransferase 376 U/L (12-78); Albumin Level 3.4 g/dl (3.5-5.0); Alkaline Phosphatase 1476 U/L (38-126); Anion Gap 19.4 mEq/L (5-15); Aspartate Amino Transferase 326 U/L (17-59); Bilirubin, Conjugated 1.1 mg/dL (0.0-0.3); Bilirubin,Direct 1.7 mg/dl (0.0-0.4); Bilirubin,Indirect 0.6 mg/dL (0.0-0.9); Bilirubin,Total 2.3 mg/dl (0.2-1.3); Bilirubin,Unconjugated 0.6 mg/dL (0.0-1.1); Calcium 8.1 mg/dl (8.4-10.2); Carbon Dioxide 15 mmol/L (22.0-30.0); Chloride 108 mmol/L (98-107); Creatinine Clearance Estimated 15 mL/min (50-200); Estimated Glomerular Filt Rate 7 ml/min (>60); GFR (African American) 8 ML/MIN (>60); Glucose 99 mg/dl (74-100); Potassium 5.4 mmoL/L (3.5-5.1); Sodium 137 mmol/L (136-145); Total Protein,Serum 6.5 g/dl (6.3-8.2)
[2020-06-11 21:25] LABS: C-Reactive Protein 22.8 mg/L (0-4)
[2020-06-11 21:26] LABS: Blood Urea Nitrogen 91 mg/dl (9-20)
--- NOTE | 2020-06-11 21:26 | HMH.EDWEAK ---
ED Disposition Clinical Impression: Elevated liver enzymes Acute renal failure (ARF) Qualifiers: Acute renal failure type: unspecified Qualified Code(s): N17.9 - Acute kidney failure, unspecified UTI (urinary tract infection) Qualifiers: Urinary tract infection type: site unspecified Hematuria presence: without hematuria Qualified Code(s): N39.0 - Urinary tract infection, site not specified Hypotension Qualifiers: Hypotension type: unspecified hypotension type Qualified Code(s): I95.9 - Hypotension, unspecified Lumbar burst fracture Qualifiers: Encounter type: initial encounter Fracture type: closed Qualified Code(s): S32.001A - Stable burst fracture of unspecified lumbar vertebra, initial encounter for closed fracture Disposition: Xfer Short-Term Hosp Condition on Discharge: Serious Referrals: Efraín Garcia MD [Primary Care Provider] - - Critical Care Critical Care Time: Yes Attestation: On 06/11/20, the high probability of a clinically significant, sudden or life threatening deterioration of the following system(s) required my full and direct attention, intervention and personal management. The time I documented below is in addition to time spent performing reported procedures but includes the following listed in this critical care notation. Total Critical Care Time: 90 Vital system(s) involved:: Renal Failure My critical care processes included: Assessment & monitoring of V/S, Initial and Re-exams, Data Review/Interpretation, Coordinating Care, Medication Orders and management, Documentation Medical Decision Making - Medical Records Medical records reviewed: Yes: I reviewed the patient's medical records. - Fito Inquiry Pt receiving controlled substance: No Vital Signs: 06/11/20 20:36 06/11/20 21:00 06/11/20 21:30 Temperature 97.6 F Temperature Source Oral Pulse Rate 60 60 Pulse Rate [Apical] 60 Respiratory Rate 18 24 21 Blood Pressure 69/33 L 79/35 L Blood Pressure [Left Arm] 70/48 L Blood Pressure Mean [Left Arm] 55 Blood Pressure Source Automatic Cuff Automatic Cuff Blood Pressure Source [Left Arm] Manual Cuff/ Auscultation Blood Pressure Position Supine Supine Blood Pressure Position [Left Arm] Supine 02 Sat by Pulse Oximetry 97 95 96 Oxygen Delivery Method Room Air Room Air Room Air 06/11/20 22:00 06/11/20 23:00 Temperature 97.1 F L Temperature Source Rectal Pulse Rate 60 60 Pulse Rate [Apical] Respiratory Rate 21 20 Blood Pressure 77/42 L 79/42 L Blood Pressure [Left Arm] Blood Pressure Mean [Left Arm] Blood Pressure Source Automatic Cuff Automatic Cuff Blood Pressure Source [Left Arm] Blood Pressure Position Supine Supine Blood Pressure Position [Left Arm] 02 Sat by Pulse Oximetry 97 98 Oxygen Delivery Method Room Air Room Air - Lab Data Lab results reviewed: Yes: I reviewed the patient's lab results. Lab Results 06/11/20 20:40: WBC 8.3, RBC 2.78 L, Hgb 8.9 L, Hct 27.6 L, MCV 99.6 H, MCH 32.1 H, MCHC 32.3, RDW 17.6 H, Plt Count 237, MPV 7.9, Neut % (Auto) 82.4 H, Lymph % (Auto) 6.8 L, [place] % (Auto) 10.2 H, Eos % (Auto) 0.5, Baso % (Auto) 0.2, Neut # (Auto) 6.9, Lymph # (Auto) 0.6 L, [place] # (Auto) 0.9, Eos # (Auto) 0.0, Baso # (Auto) 0.0, ESR > 140 H 06/11/20 20:40: Sodium 137, Potassium 5.4 H, Chloride 108 H, Carbon Dioxide 15 L, Anion Gap 19.4 H, BUN 91 H, Creatinine 8.10 H, Estimated Creat Clear 15, Estimated GFR 7 L*, Est GFR ( Amer) 8 L*, Glucose 99, Calcium 8.1 L, Total Bilirubin 2.3 H, Direct Bilirubin 1.7 H, Conjugated Bilirubin 1.1 H, Indirect Bilirubin 0.6, Unconjugated Bilirubin 0.6, AST 326 H*, ALT 376 H*, Alkaline Phosphatase 1476 H, Troponin I 0.02, C-Reactive Protein 22.8 H, Total Protein 6.5, Albumin 3.4 L 06/11/20 20:40: Chlamy pneumoniae PCR Not detected, Adenovirus (PCR) Not detected, B. pertussis DNA (PCR) Not detected, Coronavirus OC43 (PCR) Not detected, Coronavirus HKU1 (PCR) Not detected, Coronavirus 229E (PCR) Not detected
[2020-06-11 21:28] LABS: Erythrocyte Sedimentation Rate > 140 mm/hr (0-20)
--- NOTE | 2020-06-11 21:29 | CT_ITS ---
PROCEDURE: CT ABDOMEN PELVIS WO CON CLINICAL INDICATION: abd pain COMPARISON: CR XR LUMBAR SPINE MIN 4V from 08/31/2019 TECHNIQUE: Axial images obtained with sagittal and coronal reformats. All CT scans at the facility use one or more dose reduction, viz: automated exposure control, ma/kV adjustment per patient size (including targeted exams where dose is matched to indication, i.e. head), or iterative reconstruction technique. FINDINGS: LOWER THORAX: Coronary artery calcifications and/or stents noted. There are small bilateral pleural effusions. ABDOMEN & PELVIS: The liver and spleen and adrenal glands have an unremarkable appearance. Scattered punctate calcifications are present within the pancreas with mild haziness of the peripancreatic fat and edema within the upper mesenteric fat. Motion artifact and beam hardening artifact somewhat obscures fine detail of the upper abdomen. There is thickening of the transverse duodenum. There are bilateral renal cyst with some mild stranding of the perinephric fat. 5 mm stone and a 2 mm stone noted in the upper pole of the left kidney. There is mild prominence of the renal pelves on both sides. No ureteral calculus apparent. There are mildly prominent retroperitoneal lymph nodes. There is mild wall thickening of the ascending colon with some fatty infiltration. The appendix has an unremarkable appearance. No intestinal obstruction or free air. No evidence of diverticulitis. Prostate seed implants are present. There is a small amount of fluid in the pericolic gutters and pelvis and the left perisplenic region. There is a burst fracture of L5 with 50 percent loss of central vertebral body height and 3 mm posterior retropulsion. Compression fracture noted of T10 with loss of height of 30 percent. This may be chronic. Mild wedging also of T7, T8, T9, T11, and T12. Osteoarthritis of the hips. IMPRESSION: 1. Possible mild acute pancreatitis superimposed upon chronic pancreatitis. 2. Thickening of the transverse portion of the duodenum which may be related to adjacent inflammatory changes 3. Left nephrolithiasis with bilateral renal cysts. Trace amount free fluid in the abdomen and pelvis. 4. Small bilateral pleural effusions 5. Burst type fracture of L5 age acute to subacute Dictated by: Anthony Nolen MD 06/12/2020 09:17 Anthony Nolen MD in [facility] 06/12/2020 09:17
[2020-06-11 21:30] VITALS: BP 79/35; PULSE 60; RESP 21; O2SAT 96
[2020-06-11 21:34] LABS: Bacteria,Urine 2+ /lpf; Squamous Epithelial Cell,Urine Occasional #/hpf (0-5); WBC,Urine TNTC #/hpf (0-3)
[2020-06-11 21:34] LABS: Troponin I 0.02 ng/ml (0.00-0.034)
[2020-06-11 21:37] LABS: Amylase 83 U/L (30-110)
--- NOTE | 2020-06-11 21:38 | PC.NURSE ---
Critical labs reported to
[2020-06-11 21:39] LABS: Lipase 834 U/L (23-300); Procalcitonin 0.628 ng/mL (0.0-2.0)
[2020-06-11 21:56] LABS: Lactic Acid 1.1 mmol/L (0.7-2.1)
[2020-06-11 22:00] VITALS: BP 77/42; PULSE 60; RESP 21; O2SAT 97
[2020-06-11 23:00] VITALS: BP 79/42; PULSE 60; RESP 20; TEMP 36.2; O2SAT 98
--- NOTE | 2020-06-11 23:01 | PC.NURSE ---
Pharmacy paged at this time
--- NOTE | 2020-06-11 23:06 | PC.NURSE ---
spoke with ritesh mccann for invanz dosage
--- NOTE | 2020-06-11 23:20 | PC.NURSE ---
Dr. Blanchard speaking with Dr. Benitez at [facility]
[2020-06-11 23:21] LABS: Occult Blood,Stool Negative (Negative)
[2020-06-11 23:30] VITALS: BP 94/51; PULSE 60; RESP 20; O2SAT 94
--- NOTE | 2020-06-11 23:31 | PC.NURSE ---
has placed pt on the waiting list, no beds available at this time.
--- NOTE | 2020-06-11 23:34 | PC.NURSE ---
Called [facility], no beds available.
--- NOTE | 2020-06-11 23:44 | PC.NURSE ---
placed on waiting list at [facility], [place], operated by [facility]. accepting md dr barillas. spoke with acc [id number].
[2020-06-12] VITALS: BP 89/52; PULSE 60; RESP 21; O2SAT 95
--- NOTE | 2020-06-12 00:12 | PC.NURSE ---
has placed pt on waiting list. No med-surg or tele beds available.
--- NOTE | 2020-06-12 00:12 | PC.NURSE ---
MD Santo speaking to hospitalist at [facility] currently regarding transfer.
--- NOTE | 2020-06-12 00:46 | PC.NURSE ---
MD Santo speaking to at [facility] in regards to transfer at this time.
--- NOTE | 2020-06-12 00:56 | PC.NURSE ---
Pt accepted to [place] by MD Dann. Dann requesting 100mg solu-cortef IV once. Pt going to bed 116.
[2020-06-12 01:00] VITALS: BP 84/44; PULSE 60; RESP 23; O2SAT 95
--- NOTE | 2020-06-12 01:10 | PC.NURSE ---
Report called to HECTOR Browning at [facility] at this time
--- NOTE | 2020-06-12 01:17 | PC.NURSE ---
Linda notified of transfer request
[2020-06-12 01:56] VITALS: BP 82/45; PULSE 62; RESP 16; TEMP 36.7; O2SAT 99
== END 2020-06-12 02:01 | disposition short-term general hospital (02) ==
PROVIDERS: Emergency Provider Emergency Medicine; PCP Internal Medicine Adolescent Medicine
DX: N17.9 Acute kidney failure, unspecified (principal); N30.00 Acute cystitis without hematuria; I95.9 Hypotension, unspecified; S32.001A Stable burst fracture of unspecified lumbar vertebra, initial encounter for closed fracture; J44.9 Chronic obstructive pulmonary disease, unspecified; I25.10 Atherosclerotic heart disease of native coronary artery without angina pectoris; I10 Essential (primary) hypertension; E78.5 Hyperlipidemia, unspecified; F17.210 Nicotine dependence, cigarettes, uncomplicated; W18.39XA Other fall on same level, initial encounter; Y92.89 Other specified places as the place of occurrence of the external cause; Z79.899 Other long term (current) drug therapy; Z85.46 Personal history of malignant neoplasm of prostate; Z85.01 Personal history of malignant neoplasm of esophagus
CPT/HCPCS: 36415; 70450; 71045; 72125; 72170; 74176; 80048; 80076; 81001; 82150; 82272; 83605; 83690; 84145; 84484; 85025; 85651; 86140; 87040; 87086; 87581; 87633; 87798; 93005; 96365; 96366; 96367; 96375; 99284; G0328; J1335